=== PATIENT | male | born 1955 | race African-American/Black ===

== ENCOUNTER 2019-03-29 14:43 | Emergency (ER) | payer SELFPAY ==
[~2019-03-29] VITALS: Ht 170.2 cm; Wt 68.0 kg
[2019-03-29] MEDS ORDERED: SODIUM CHLORIDE 0.9% 500 ML IV ONE (20:45)
[2019-03-29 21:25] LABS: BASOPHILS % 1.4 % (0.0-2.0); EOSINOPHILS % 3.2 % (0.0-5.0); HEMATOCRIT. 40.8 % (42.0-52.0); HEMOGLOBIN. 13.8 g/dL (14.0-18.0); MEAN CORPUSCULAR HEMOGLOBIN 35.3 pg (28.0-32.0); MEAN CORPUSCULAR VOLUME 104.1 fL (80.0-94.0); MEAN PLATELET VOLUME 7.1 fl (7.4-10.4); MONOCYTES % 14.4 % (2.0-8.0); PLATELET 150 x1000/uL (130-400); RED BLOOD CELL COUNT 3.92 mill/uL (4.7-6.1); RED CELL DISTRIBUTION WIDTH 14.5 % (11.6-14.6)
[2019-03-29 21:29] LABS: CHLORIDE 109 mEq/L (98-107)
[2019-03-30 01:04] VITALS: BP 122/86
== END 2019-03-30 01:41 | disposition home or self-care (01) ==
LOC: ER 14:56
DX: E86.0 Dehydration (principal); R53.1 Weakness
CPT/HCPCS: 36415; 71045; 80053; 83880; 84484; 85025; 93005; 96360; 96361; 99284; J7040